=== PATIENT | male | born 1990 | race Caucasian/White ===

== ENCOUNTER 2019-10-13 09:21 | Day surgery (SDC) | payer BC ==
[2019-10-11 16:24] VITALS: BMI 28.2
[~2019-10-13 09:21] MED LIST: DEXAMETHASONE SOD PHOSPHATE 10 MG/ML 1 ML VIAL IV ONE; HEPARIN SODIUM,PORCINE 5,000 UNIT/ML 1 ML VIAL SQ ONE; HYDROmorphone 0.5 MG/0.5 ML SYRINGE IVP PRN; LACTATED RINGERS 1,000 ML IV SCH; LIDOCAINE 1% 20 ML VIAL (10MG/ML) FOR IV START INTRADERMA PRN; MIDAZOLAM 2 MG/2 ML VIAL IV PRN; ONDANSETRON 4 MG/2 ML VIAL IVP ONE; Pre Op ABX Message 1 EACH MISC MISCELLANE ONE; SCOPOLAMINE 1.5MG/72HR PATCH TRANSDERM ONE
[2019-10-13 09:51] VITALS: RESP 18; TEMP 97.5
--- NOTE | 2019-10-13 09:54 | P.GSHP ---
History of Present Illness H&P Date: 10/13/19 Chief Complaint: Left arm lipoma 2 This is a 28-year-old male who presents today for excision of left arm lipoma. Patient has a for similar lipoma near his left bicep and a 2 cm lipoma on the forearm. Past Medical History Past Medical History: Hypertension Additional Past Medical History / Comment(s): STATES NEW DIAGNOSIS OF HTN- NO MEDS- STATES HE IS TRYING DIET AND EXERCISE ., HX GOUT, ASTHMA (CHILD), LIPOMAS LEFT ARM. , SCHEDULING SLEEP APNEA TESTING, BACK & KNEE PAIN. History of Any Multi-Drug Resistant Organisms: None Reported Past Surgical History: No Surgical Hx Reported Past Anesthesia/Blood Transfusion Reactions: Motion Sickness Additional Past Anesthesia/Blood Transfusion Reaction / Comment(s): NO ANESTHESIA HX. Past Psychological History: No Psychological Hx Reported Smoking Status: Former smoker Past Alcohol Use History: Occasional Additional Past Alcohol Use History / Comment(s): QUIT SMOKING 2013. SMOKED LESS THAN 1/2 PPD. SMOKED 7 YEARS. Past Drug Use History: Marijuana Additional Drug Use History / Comment(s): CURRENT MARIJUANA USE. - Past Family History Mother Family Medical History: No Reported History Medications and Allergies Home Medications Medication Instructions Recorded Confirmed Type Ascorbic Acid [Vitamin C] 500 mg PO DAILY 10/11/19 10/13/19 History Allergies Allergy/AdvReac Type Severity Reaction Status Date / Time No Known Allergies Allergy Verified 10/13/19 09:45 Surgical - Exam Vital Signs Temp Pulse Resp BP Pulse Ox 97.5 F L 68 18 136/85 99 10/13/19 09:50 10/13/19 09:50 10/13/19 09:50 10/13/19 09:50 10/13/19 09:50 - General well developed, well nourished, no distress - Eyes PERRL - ENT normal pinna - Neck no masses - Respiratory normal expansion - Cardiovascular Rhythm: regular - Abdomen Abdomen: soft, non tender - Integumentary Or similar lipoma left upper arm on the medial aspect of bicep, 3 cm lipoma left forearm Assessment and Plan Assessment: Left arm lipoma 2. We'll perform excision.
[2019-10-13] MEDS ORDERED: PROPOFOL 10 MG/ML 20 ML VIAL IV ONE (10:14)
[2019-10-13] MEDS ORDERED: fentaNYL (PF) 50 MCG/ML 2 ML AMP ONE (10:14)
[2019-10-13] MEDS ORDERED: MIDAZOLAM 2 MG/2 ML VIAL ONE (10:14)
[2019-10-13] MEDS ORDERED: KETAMINE 10 MG/ML 20 ML VIAL ONE (10:14)
[2019-10-13] MEDS ORDERED: LIDOCAINE 1%-EPI 1:100,000 20 ML VIAL SQ ONE ×2 (10:36)
[2019-10-13 11:37] VITALS: BP 130/84; PULSE 71
--- NOTE | 2019-10-13 13:02 | P.OP ---
Date of Procedure: 10/13/19 Preoperative Diagnosis: Left arm lipomas 2 Postoperative Diagnosis: Left arm lipoma 2 Procedure(s) Performed: Excision of left arm lipoma 2 Anesthesia: MAC Surgeon: Vic Saab Estimated Blood Loss (ml): 5 Pathology: other (And lipomas) Condition: stable Disposition: PACU Description of Procedure: Patient's placed on the operative table in the supine position. He received IV sedation. His left arm was prepped and draped usual sterile fashion. The patient had a for similar lipoma located in the medial aspect of his left bicep. The skin was anesthetized 1% local Xylocaine. Then the skin was incised using a 15 blade and then using blunt and sharp dissection with cautery the lipoma was excised. The skin was closed interrupted 3-0 Monocryl suture. Dermabond was applied. Next the left forearm lipoma was anesthetized 1% local Xylocaine. Skin was incised and then using blunt and sharp dissection with cautery the lipoma was removed. The lipoma measured approximately 2 cm in diameter. This was sent to pathology. The skin was closed interrupted 3-0 Monocryl suture. Dermabond was applied. Patient top she will well and was sent to recovery room in stable condition.
--- NOTE | 2019-10-18 14:28 | CDI ---
Date: 10.18.19 CDS/Software Quality Test Engineer Name: Sujata Patel Phone: If any questions, call Carley Mcbride Manager Search Engine at [phone] Patient Name: Zia Gomez Adm Date: 10.13.19 Dis Date: 10.13.19 Attention: The [facility] coding staff appreciate your assistance in clarifying documentation. Please respond to the clarification below the line at the bottom and electronically sign. The [facility] Coding Staff will review the response and follow up if needed. Please note: Queries are made part of the legal health record. If you have any questions, please contact the Manager Search Engine. Dear Dr. Saab Please document the size of the lipoma you removed from the patients left bicep. Thank you for your kind consideration. 4 cm MTDD
== END 2019-10-13 12:03 | disposition home or self-care (01) ==
LOC: OR 09:21
PROVIDERS: ATTEND Surgery
DX: D17.22 Benign lipomatous neoplasm of skin and subcutaneous tissue of left arm (principal); I10 Essential (primary) hypertension; M10.9 Gout, unspecified; J45.909 Unspecified asthma, uncomplicated; M54.9 Dorsalgia, unspecified; M25.569 Pain in unspecified knee; K08.89 Other specified disorders of teeth and supporting structures; Z87.898 Personal history of other specified conditions; Z87.891 Personal history of nicotine dependence; Z98.890 Other specified postprocedural states
CPT/HCPCS: 88304; 11404; 11402; J2250; J1644; J1100; J2405; J3010; J2704

== ENCOUNTER 2020-02-09 08:33 | Emergency (ER) | payer BC ==
[2020-02-09 08:40] VITALS: PULSE 76; RESP 16
[2020-02-09] MEDS ORDERED: PANTOPRAZOLE 40 MG/10 ML VIAL IVP STA (08:56)
[2020-02-09] MEDS ORDERED: SODIUM CHLORIDE 0.9% 1,000 ML IV STA ×2 (08:56)
--- NOTE | 2020-02-09 08:59 | ED ---
GI Bleed HPI - General Chief complaint: GI Bleed Stated complaint: patient states pooping blood Time Seen by Provider: 02/09/20 08:42 Source: patient, RN notes reviewed, old records reviewed Mode of arrival: ambulatory Limitations: no limitations - History of Present Illness Initial comments: Patient is a 29-year-old male who presents emergency department today with 1 day of bloody stool. Patient reports that he had soft stools which then progressed to bloody stools and lower abdominal cramping and pain this morning. Patient reports that he had some more bloody stools a work and decided to come home. He is here with his . He's had a history of bowel trouble and frequent diarrhea. also states he's had a unintentional 10 pound weight loss over the past month. Patient has had no history of colonoscopies before. He denies any vomiting or nausea. He states that he has no changes in urination. - Related Data Home Medications Medication Instructions Recorded Confirmed Ascorbic Acid [Vitamin C] 500 mg PO DAILY 10/11/19 10/13/19 Previous Rx's Medication Instructions Recorded Amoxic-Pot Clav 875-125Mg 1 tab PO Q12HR #20 tablet 02/09/20 [Augmentin 875-125] Allergies Allergy/AdvReac Type Severity Reaction Status Date / Time iodine Allergy Rash/Hives Verified 02/09/20 08:41 povidone-iodine Allergy Rash/Hives Verified 02/09/20 08:41 [From Betadine] soap [From Betadine] Allergy Rash/Hives Verified 02/09/20 08:41 Review of Systems ROS Statement: Those systems with pertinent positive or pertinent negative responses have been documented in the HPI. ROS Other: All systems not noted in ROS Statement are negative. Past Medical History Past Medical History: Hypertension Additional Past Medical History / Comment(s): STATES NEW DIAGNOSIS OF HTN- NO MEDS- STATES HE IS TRYING DIET AND EXERCISE ., HX GOUT, ASTHMA (CHILD), LIPOMAS LEFT ARM. , SCHEDULING SLEEP APNEA TESTING, BACK & KNEE PAIN. History of Any Multi-Drug Resistant Organisms: None Reported Past Surgical History: No Surgical Hx Reported Past Anesthesia/Blood Transfusion Reactions: Motion Sickness Additional Past Anesthesia/Blood Transfusion Reaction / Comment(s): NO ANESTHESIA HX. Past Psychological History: No Psychological Hx Reported Smoking Status: Former smoker Past Alcohol Use History: Occasional Past Drug Use History: Marijuana - Past Family History Mother Family Medical History: No Reported History General Exam - General Exam Comments Initial Comments: 29-year-old male. Alert and oriented. No distress. General: Well appearing, well nourished, in no distress. Oriented x 3, normal mood and affect . Ambulating without difficulty. Skin: Good turgor, no rash, unusual bruising or prominent lesions Hair: Normal texture and distribution. HEENT: Head: Normocephalic, atraumatic, no visible or palpable masses, depressions, or scaring. Eyes: Visual acuity intact, conjunctiva clear, sclera non-icteric, EOM intact, PERRL. Ears: EACs clear, TMs translucent & cone of light visualized. hearing intact. Nose: No external lesions, mucosa non-inflamed, septum and turbinates normal Mouth: Mucous membranes moist, no mucosal lesions. Teeth/Gums: No obvious caries or periodontal disease. No gingival inflammation or significant resorption. Pharynx: Mucosa non-inflamed, no tonsillar hypertrophy or exudate Neck: Supple, without lesions, bruits, or adenopathy, thyroid non-enlarged and non-tender Heart: No cardiomegaly or thrills; regular rate and rhythm, no murmur or gallop Lungs: Clear to auscultation and percussion Abdomen: Bowel sounds normal, left lower quadrant tenderness. Back: Spine normal without deformity or tenderness, no CVA tenderness Rectal: Normal sphincter tone, no hemorrhoids or masses palpable. No significant amount of blood noted. No significant tenderness. Extremities: No amputations or deformities, cyanosis, edema or varicosities, peripheral pulses intact Musculoskeletal: Normal gait and station. No misalignment, asymmetry, crepitat ion, defects, tenderness, masses, effusions, decreased range of motion, instability, atrophy or abnormal strength or tone in the head, neck, spine, ribs, pelvis or extremities. Neurologic: CN 2-12 normal. Sensation to pain, touch, and proprioception normal. DTRs normal in upper and lower extremities. No pathologic reflexes. Psychiatric: Oriented X3, intact recent and remote memory, judgment and insight, normal mood and affect. Limitations: no limitations Course Vital Signs 02/09/20 08:36 Temperature 97.9 F Pulse Rate 76 Respiratory 16 Rate Blood Pressure 137/85 O2 Sat by Pulse 100 Oximetry Medical Decision Making - Medical Decision Making Patient is a 29-year-old male who presents is emergency department today with 1 day of bloody stool. Patient has some minimal left-sided lower abdominal pain. No acute tenderness. This time patient's labwork was reviewed. Hemoglobin is stable 15. White blood cell count is 8. Patient reports he has had intermittent diarrhea off and on for the past few years. I discussed Patient may have autoimmune process like Crohn's or colitis. Patient does have a positive occult stool. I discussed case with Dr. West. With labs a single vial signs stable discussed treatment this time for possible infectious colitis in the interim having a clear liquid diet. He discussed the importance with the Patient following up with GI specialist and that he may need to have a colonoscopy. Discussed strict return parameters of fever or vomiting or severe pain to return for reevaluation. Patient is agreeable to treatment plan will comply. - Lab Data Result diagrams: 02/09/20 09:00 02/09/20 09:00 Lab Results 02/09/20 02/09/20 02/09/20 Range/Units 08:50 08:58 09:00 WBC 8.4 (3.8-10.6) k/uL RBC 5.31 (4.30-5.90) m/uL Hgb 15.3 (13.0-17.5) gm/dL Hct 44.9 (39.0-53.0) % MCV 84.5 (80.0-100.0) fL MCH 28.8 (25.0-35.0) pg MCHC 34.1 (31.0-37.0) g/dL RDW 12.2 (11.5-15.5) % Plt Count 247 (150-450) k/uL Neutrophils % 60 % Lymphocytes % 31 % Monocytes % 5 % Eosinophils % 2 % Basophils % 1 % Neutrophils # 5.0 (1.3-7.7) k/uL Lymphocytes # 2.6 (1.0-4.8) k/uL Monocytes # 0.5 (0-1.0) k/uL Eosinophils # 0.1 (0-0.7) k/uL Basophils # 0.1 (0-0.2) k/uL PT (9.0-12.0) sec INR (<1.2) APTT (22.0-30.0) sec Sodium (137-145) mmol/L Potassium (3.5-5.1) mmol/L Chloride (98-107) mmol/L Carbon Dioxide (22-30) mmol/L Anion Gap mmol/L BUN (9-20) mg/dL Creatinine (0.66-1.25) mg/dL Est GFR (CKD-EPI)AfAm (>60 ml/min/1.73 sqM) Est GFR (CKD-EPI)NonAf (>60 ml/min/1.73 sqM) Glucose (74-99) mg/dL Calcium (8.4-10.2) mg/dL Total Bilirubin (0.2-1.3) mg/dL AST (17-59) U/L ALT (4-49) U/L Alkaline Phosphatase (38-126) U/L Troponin I (0.000-0.034) ng/mL Total Protein (6.3-8.2) g/dL Albumin (3.5-5.0) g/dL Stool Occult Blood Positive (Negative) Blood Type Blood Type Confirm O Positive Blood Type Recheck Bld Type Recheck Status Antibody Screen Spec Expiration Date 02/09/20 02/09/20 02/09/20 Range/Units 09:00 09:00 09:00 WBC (3.8-10.6) k/uL RBC (4.30-5.90) m/uL Hgb (13.0-17.5) gm/dL Hct (39.0-53.0) % MCV (80.0-100.0) fL MCH (25.0-35.0) pg MCHC (31.0-37.0) g/dL RDW (11.5-15.5) % Plt Count (150-450) k/uL Neutrophils % % Lymphocytes % % Monocytes % % Eosinophils % % Basophils % % Neutrophils # (1.3-7.7) k/uL Lymphocytes # (1.0-4.8) k/uL Monocytes # (0-1.0) k/uL Eosinophils # (0-0.7) k/uL Basophils # (0-0.2) k/uL PT 10.4 (9.0-12.0) sec INR 1.0 (<1.2) APTT 26.7 (22.0-30.0) sec Sodium 140 (137-145) mmol/L Potassium 4.6 (3.5-5.1) mmol/L Chloride 106 (98-107) mmol/L Carbon Dioxide 24 (22-30) mmol/L Anion Gap 10 mmol/L BUN 18 (9-20) mg/dL Creatinine 1.00 (0.66-1.25) mg/dL Est GFR (CKD-EPI)AfAm >90 (>60 ml/min/1.73 sqM) Est GFR (CKD-EPI)NonAf >90 (>60 ml/min/1.73 sqM) Glucose 102 H (74-99) mg/dL Calcium 9.6 (8.4-10.2) mg/dL Total Bilirubin 1.0 (0.2-1.3) mg/dL AST 30 (17-59) U/L ALT 38 (4-49) U/L Alkaline Phosphatase 80 (38-126) U/L Troponin I <0.012 (0.000-0.034) ng/mL Total Protein 7.6 (6.3-8.2) g/dL Albumin 4.7 (3.5-5.0) g/dL Stool Occult Blood (Negative) Blood Type Blood Type Confirm Blood Type Recheck Bld Type Recheck Status Antibody Screen Spec Expiration Date 02/09/20 Range/Units 09:00 WBC (3.8-10.6) k/uL RBC (4.30-5.90) m/uL Hgb (13.0-17.5) gm/dL Hct (39.0-53.0) % MCV (80.0-100.0) fL MCH (25.0-35.0) pg MCHC (31.0-37.0) g/dL RDW (11.5-15.5) % Plt Count (150-450) k/uL Neutrophils % % Lymphocytes % % Monocytes % % Eosinophils % % Basophils % % Neutrophils # (1.3-7.7) k/uL Lymphocytes # (1.0-4.8) k/uL Monocytes # (0-1.0) k/uL Eosinophils # (0-0.7) k/uL Basophils # (0-0.2) k/uL PT (9.0-12.0) sec INR (<1.2) APTT (22.0-30.0) sec Sodium (137-145) mmol/L Potassium (3.5-5.1) mmol/L Chloride (98-107) mmol/L Carbon Dioxide (22-30) mmol/L Anion Gap mmol/L BUN (9-20) mg/dL Creatinine (0.66-1.25) mg/dL Est GFR (CKD-EPI)AfAm (>60 ml/min/1.73 sqM) Est GFR (CKD-EPI)NonAf (>60 ml/min/1.73 sqM) Glucose (74-99) mg/dL Calcium (8.4-10.2) mg/dL Total Bilirubin (0.2-1.3) mg/dL AST (17-59) U/L ALT (4-49) U/L Alkaline Phosphatase (38-126) U/L Troponin I (0.000-0.034) ng/mL Total Protein (6.3-8.2) g/dL Albumin (3.5-5.0) g/dL Stool Occult Blood (Negative) Blood Type O Positive Blood Type Confirm Blood Type Recheck No Previous Record Bld Type Recheck Status CABO Indicated Antibody Screen NEGATIVE Spec Expiration Date 02/12/2020 - 2299 Disposition Clinical Impression: Bloody stool, Abdominal pain Disposition: HOME SELF-CARE Condition: Good Instructions (If sedation given, give patient instructions): Gastrointestinal B yolanda (ED) Additional Instructions: Patient should have a clear liquid diet for the next 24-48 hours. Then advance to a bland diet afterwards. Take the antibiotic as prescribed. Follow-up with PCP. Return to the ED if any alarming signs or symptoms occur. Prescriptions: Amoxic-Pot Clav 875-125Mg [Augmentin 875-125] 1 tab PO Q12HR #20 tablet Is patient prescribed a controlled substance at d/c from ED?: No Referrals: Efrain Corbett III, MD [Primary Care Provider] - 1-2 days Annie Akhtar MD [STAFF PHYSICIAN] - 1-2 days Time of Disposition: 10:24
[2020-02-09 09:07] VITALS: TEMP 97.9
[2020-02-09 09:24] LABS: Basophils # (A) 0.1 k/uL (0-0.2); Basophils % (A) 1 %; Eosinophils # (A) 0.1 k/uL (0-0.7); Eosinophils % (A) 2 %; HCT 44.9 % (39.0-53.0); HGB 15.3 gm/dL (13.0-17.5); Lymphocytes # (A) 2.6 k/uL (1.0-4.8); Lymphocytes % (A) 31 %; MCH 28.8 pg (25.0-35.0); MCHC 34.1 g/dL (31.0-37.0); MCV 84.5 fL (80.0-100.0); Monocytes # (A) 0.5 k/uL (0-1.0); Monocytes % (A) 5 %; Neutrophils % (A) 60 %; Platelet Count 247 k/uL (150-450); RBC 5.31 m/uL (4.30-5.90); RDW 12.2 % (11.5-15.5); WBC 8.4 k/uL (3.8-10.6)
[2020-02-09 09:35] LABS: Partial Thromboplastin Time 26.7 sec (22.0-30.0); Prothrombin Time 10.4 sec (9.0-12.0)
[2020-02-09 09:40] LABS: ALT 38 U/L (4-49); AST 30 U/L (17-59); African American GFR (CKD) >90 (>60 ml/min/1.73 sqM); Albumin 4.7 g/dL (3.5-5.0); Alkaline Phosphatase 80 U/L (38-126); Anion Gap 10 mmol/L; Blood Urea Nitrogen 18 mg/dL (9-20); Calcium 9.6 mg/dL (8.4-10.2); Carbon Dioxide 24 mmol/L (22-30); Chloride 106 mmol/L (98-107); Glucose 102 mg/dL (74-99); Non-African American GFR(CKD) >90 (>60 ml/min/1.73 sqM); Potassium 4.6 mmol/L (3.5-5.1); Sodium 140 mmol/L (137-145); Total Protein 7.6 g/dL (6.3-8.2)
[2020-02-09] MEDS ORDERED: KETOROLAC 30 MG/ML 1 ML VIAL IVP STA (09:59)
[2020-02-09 10:41] VITALS: BP 130/75
== END 2020-02-09 10:39 | disposition home or self-care (01) ==
LOC: EC 08:33
DX: K92.1 Melena (principal); R10.30 Lower abdominal pain, unspecified; R19.7 Diarrhea, unspecified; I10 Essential (primary) hypertension; M10.9 Gout, unspecified; Z88.3 Allergy status to other anti-infective agents; Z87.891 Personal history of nicotine dependence; Z91.048 Other nonmedicinal substance allergy status
CPT/HCPCS: 36415; 86900; 86901; 80053; 84484; 85025; 85610; 85730; 86850; 82272; 99285; 96374; 96375; 96361; J1885; C9113

== ENCOUNTER → 2021-12-22 | Outpatient (CLI) | payer BC ==
--- NOTE | 2021-12-22 08:27 | MR ---
EXAMINATION TYPE: MR knee RT wo con DATE OF EXAM: 12/22/2021 COMPARISON: None HISTORY: PAIN IN RT KNEE TECHNIQUE: Multiplanar, multisequence imaging of the right knee is performed without IV contrast. FINDINGS: There is some motion artifact on the exam. MEDIAL MENISCUS: Anterior and posterior horns are intact without tear, some mild increased signal pre sent within the posterior horn of the medial meniscus noted. LATERAL MENISCUS: Anterior and posterior horns are intact without tear. CRUCIATE LIGAMENTS: The anterior and posterior cruciate ligaments are intact and there is some increa sed signal present along the anterior cruciate ligament, some fluid signal is present, there may be a partial tear or strain. COLLATERAL LIGAMENTS: The medial collateral ligament and lateral collateral ligament complex are inta ct and unremarkable. EXTENSOR MECHANISM: Visualized quadriceps and patellar tendons are intact. EFFUSION: Minimal effusion present posterior to the patella POPLITEAL CYST: Minimal semimembranosus gastrocnemius cyst is present measuring only 2.2 x 0.9 x 0.4 cm TRICOMPARTMENT SPACES: Maintained CARTILAGE: Normal BONE MARROW SIGNAL: Normal OTHER: No additional significant abnormality is appreciated. IMPRESSION: Minimal joint effusion. Small Renteria's cyst. Possible partial tear or strain anterior cruciate ligamen t
== END | disposition home or self-care (01) ==
LOC: RADMRIMAIN 07:17
PROVIDERS: ATTEND Nurse Practitioner Family
DX: Z00.00 Encounter for general adult medical examination without abnormal findings (principal); M25.461 Effusion, right knee; M71.21 Synovial cyst of popliteal space [Baker], right knee

== ENCOUNTER 2022-01-30 20:43 | Emergency (ER) | payer BC ==
[2022-01-30 21:22] LABS: Basophils # (A) 0.1 k/uL (0-0.2); Basophils % (A) 1 %; Eosinophils # (A) 0.2 k/uL (0-0.7); Eosinophils % (A) 2 %; HCT 46.5 % (39.0-53.0); HGB 16.5 gm/dL (13.0-17.5); Lymphocytes # (A) 3.6 k/uL (1.0-4.8); Lymphocytes % (A) 32 %; MCH 30.5 pg (25.0-35.0); MCHC 35.5 g/dL (31.0-37.0); MCV 85.9 fL (80.0-100.0); Mean Platelet Volume 8.1; Monocytes # (A) 0.5 k/uL (0-1.0); Monocytes % (A) 5 %; Neutrophils # (A) 6.7 k/uL (1.3-7.7); Neutrophils % (A) 59 %; Platelet Count 268 k/uL (150-450); RBC 5.42 m/uL (4.30-5.90); RDW 13.4 % (11.5-15.5); WBC 11.3 k/uL (3.8-10.6)
[2022-01-30 21:32] LABS: ALT 41 U/L (4-49); AST 36 U/L (17-59); African American GFR (CKD) >90 (>60 ml/min/1.73 sqM); Albumin 4.6 g/dL (3.5-5.0); Alkaline Phosphatase 101 U/L (38-126); Anion Gap 11 mmol/L; Blood Urea Nitrogen 15 mg/dL (9-20); Carbon Dioxide 23 mmol/L (22-30); Chloride 104 mmol/L (98-107); Glucose 115 mg/dL (74-99); Non-African American GFR(CKD) >90 (>60 ml/min/1.73 sqM); Sodium 138 mmol/L (137-145); Total Bilirubin 0.6 mg/dL (0.2-1.3); Total Protein 8.1 g/dL (6.3-8.2)
--- NOTE | 2022-01-30 21:41 | XR ---
EXAMINATION TYPE: XR chest 2V DATE OF EXAM: 01/30/2022 COMPARISON: NONE HISTORY: Chest pain TECHNIQUE: 2 view FINDINGS: Heart and mediastinum are normal. Lungs are clear. Diaphragm is normal. Bony thorax is inta ct. IMPRESSION: Normal chest.
[2022-01-30 22:10] LABS: INR 0.9 (<1.2); Partial Thromboplastin Time 28.6 sec (22.0-30.0); Prothrombin Time 10.4 sec (9.0-12.0)
[2022-01-30 22:13] VITALS: RESP 18; TEMP 98.7
--- NOTE | 2022-01-30 23:38 | ED ---
General Adult HPI - General Chief complaint: Chest Pain Stated complaint: Chest Pain, Lt Shoulder Pain Time Seen by Provider: 01/30/22 22:16 Source: patient, RN notes reviewed Mode of arrival: ambulatory Limitations: no limitations - History of Present Illness Initial comments: 31-year-old male presents to the emergency Department with complaints of left shoulder pain, left chest discomfort, and elevated heart rate. Patient states he had an episode 2 days ago in which he experienced an elevated heart rate and left chest and shoulder pain. Patient states his discomfort resolved shortly; no aggravating or alleviating factors. States he had an another episode again today in which his left trapezius tightened up and became painful, followed by l eft chest discomfort; he took an aspirin with relief. Patient reports a resting heart rate around 100 according to his Apple watch. He does take Lisinopril for hypertension. States he did drink a Mountain Dew at breakfast and does not usually consume caffeine. Denies any nicotine or stimulant drug use. No headache, fever, diaphoresis, dizziness, shortness of breath, difficulty breathing, abdominal pain, nausea, vomiting, diarrhea, or dysuria. - Related Data Home Medications Medication Instructions Recorded Confirmed Lisinopril [Zestril] 10 mg PO DAILY 01/30/22 01/30/22 Allergies Allergy/AdvReac Type Severity Reaction Status Date / Time iodine Allergy Rash/Hives Verified 01/30/22 22:57 povidone-iodine Allergy Rash/Hives Verified 01/30/22 22:57 [From Betadine] soap [From Betadine] Allergy Rash/Hives Verified 01/30/22 22:57 Review of Systems ROS Statement: Those systems with pertinent positive or pertinent negative responses have been documented in the HPI. ROS Other: All systems not noted in ROS Statement are negative. Past Medical History Past Medical History: Hypertension Additional Past Medical History / Comment(s): STATES NEW DIAGNOSIS OF HTN- NO MEDS- STATES HE IS TRYING DIET AND EXERCISE ., HX GOUT, ASTHMA (CHILD), LIPOMAS LEFT ARM. , SCHEDULING SLEEP APNEA TESTING, BACK & KNEE PAIN. History of Any Multi-Drug Resistant Organisms: None Reported Past Surgical History: No Surgical Hx Reported Past Anesthesia/Blood Transfusion Reactions: Motion Sickness Additional Past Anesthesia/Blood Transfusion Reaction / Comment(s): NO ANESTHESIA HX. Past Psychological History: No Psychological Hx Reported Smoking Status: Former smoker Past Alcohol Use History: Daily Past Drug Use History: Marijuana - Past Family History Mother Family Medical History: No Reported History General Exam Limitations: no limitations (Well-developed, well-nourished male in no acute distress. Initial temperature 98.3, pulse 100, respirations 20, blood pressure 132/88, pulse ox 100% on room air.) General appearance: alert, in no apparent distress Eye exam: Present: normal appearance, PERRL, EOMI. Absent: scleral icterus, conjunctival injection, periorbital swelling Respiratory exam: Present: normal lung sounds bilaterally. Absent: respiratory distress, wheezes, rales, rhonchi, stridor, chest wall tenderness Cardiovascular Exam: Present: regular rate, normal rhythm, normal heart sounds. Absent: systolic murmur, diastolic murmur, rubs, gallop, clicks GI/Abdominal exam: Present: soft, normal bowel sounds. Absent: distended, tenderness, guarding, rebound, rigid Left General: Present: normal inspection Shoulder Exam: Present: normal inspection, full ROM. Absent: tenderness, swelling Vascular: Present: normal capillary refill, radial pulse. Absent: vascular compromise, Pallo Neurological exam: Present: alert, oriented X3, CN II-XII intact Psychiatric exam: Present: normal affect, normal mood Skin exam: Present: warm, dry, intact, normal color. Absent: rash Course Vital Signs 01/30/22 01/30/22 20:51 22:08 Temperature 98.3 F 98.7 F Pulse Rate 100 96 Respiratory 20 18 Rate Blood Pressure 132/88 138/91 O2 Sat by Pulse 100 97 Oximetry Medical Decision Making - Medical Decision Making 31-year-old male with a past medical history of hypertension presents to the emergency department for evaluation of left-sided chest and shoulder pain. Upon exam, patient is well-appearing and in no acute distress. He is afebrile with stable vital signs. Patient's heart rate currently ranges from 84-100 bpm, which is normal for patient. Physical exam findings are unremarkable. Laboratory studies were reviewed and are within normal limits. EKG shows normal sinus rhythm with sinus arrhythmia. Chest x-ray shows normal chest. Patient is pain-free and resting comfortably. Discussed potential triggers for chest discomfort and elevated heart rate. Suggested limiting her intake of caffeine and alcohol as well as minimizing time spent in hot tub. Encouraged use of Motr in for shoulder pain. Instructed to follow up with PCP on Wednesday morning for recheck. Strict return parameters were reviewed with patient and significant other. Questions answered, they verbalize understanding and agree with this plan. - Lab Data Result diagrams: 01/30/22 21:08 01/30/22 21:08 Lab Results 01/30/22 01/30/22 01/30/22 Range/Units 21:08 21:08 21:08 WBC 11.3 H (3.8-10.6) k/uL RBC 5.42 (4.30-5.90) m/uL Hgb 16.5 (13.0-17.5) gm/dL Hct 46.5 (39.0-53.0) % MCV 85.9 (80.0-100.0) fL MCH 30.5 (25.0-35.0) pg MCHC 35.5 (31.0-37.0) g/dL RDW 13.4 (11.5-15.5) % Plt Count 268 (150-450) k/uL MPV 8.1 Neutrophils % 59 % Lymphocytes % 32 % Monocytes % 5 % Eosinophils % 2 % Basophils % 1 % Neutrophils # 6.7 (1.3-7.7) k/uL Lymphocytes # 3.6 (1.0-4.8) k/uL Monocytes # 0.5 (0-1.0) k/uL Eosinophils # 0.2 (0-0.7) k/uL Basophils # 0.1 (0-0.2) k/uL PT 10.4 (9.0-12.0) sec INR 0.9 (<1.2) APTT 28.6 (22.0-30.0) sec Sodium 138 (137-145) mmol/L Potassium 4.0 (3.5-5.1) mmol/L Chloride 104 (98-107) mmol/L Carbon Dioxide 23 (22-30) mmol/L Anion Gap 11 mmol/L BUN 15 (9-20) mg/dL Creatinine 1.01 (0.66-1.25) mg/dL Est GFR (CKD-EPI)AfAm >90 (>60 ml/min/1.73 sqM) Est GFR (CKD-EPI)NonAf >90 (>60 ml/min/1.73 sqM) Glucose 115 H (74-99) mg/dL Calcium 9.0 (8.4-10.2) mg/dL Magnesium 2.0 (1.6-2.3) mg/dL Total Bilirubin 0.6 (0.2-1.3) mg/dL AST 36 (17-59) U/L ALT 41 (4-49) U/L Alkaline Phosphatase 101 (38-126) U/L Troponin I (0.000-0.034) ng/mL Total Protein 8.1 (6.3-8.2) g/dL Albumin 4.6 (3.5-5.0) g/dL 01/30/22 Range/Units 21:08 WBC (3.8-10.6) k/uL RBC (4.30-5.90) m/uL Hgb (13.0-17.5) gm/dL Hct (39.0-53.0) % MCV (80.0-100.0) fL MCH (25.0-35.0) pg MCHC (31.0-37.0) g/dL RDW (11.5-15.5) % Plt Count (150-450) k/uL MPV Neutrophils % % Lymphocytes % % Monocytes % % Eosinophils % % Basophils % % Neutrophils # (1.3-7.7) k/uL Lymphocytes # (1.0-4.8) k/uL Monocytes # (0-1.0) k/uL Eosinophils # (0-0.7) k/uL Basophils # (0-0.2) k/uL PT (9.0-12.0) sec INR (<1.2) APTT (22.0-30.0) sec Sodium (137-145) mmol/L Potassium (3.5-5.1) mmol/L Chloride (98-107) mmol/L Carbon Dioxide (22-30) mmol/L Anion Gap mmol/L BUN (9-20) mg/dL Creatinine (0.66-1.25) mg/dL Est GFR (CKD-EPI)AfAm (>60 ml/min/1.73 sqM) Est GFR (CKD-EPI)NonAf (>60 ml/min/1.73 sqM) Glucose (74-99) mg/dL Calcium (8.4-10.2) mg/dL Magnesium (1.6-2.3) mg/dL Total Bilirubin (0.2-1.3) mg/dL AST (17-59) U/L ALT (4-49) U/L Alkaline Phosphatase (38-126) U/L Troponin I <0.012 (0.000-0.034) ng/mL Total Protein (6.3-8.2) g/dL Albumin (3.5-5.0) g/dL - EKG Data EKG shows normal: sinus rhythm Rate: normal EKG Comments: EKG obtained at 2058 shows sinus rhythm with sinus arrhythmia and borderline right axis deviation along with nonspecific T-wave abnormality. Ventricular rate 94, LA interval 154, QRS duration 87, QT/QTC 333/384. Interpretation borderline ECG. - Radiology Data Radiology results: report reviewed, image reviewed Two-view chest x-ray was obtained. Report was reviewed in its entirety. Impression per Dr. Shannon is normal chest. Disposition Clinical Impression: Non-cardiac chest pain, Shoulder pain, left Disposition: HOME SELF-CARE Condition: Stable Instructions (If sedation given, give patient instructions): Chest Pain (ED), Heart Palpitations (ED) Additional Instructions: Limit use of caffeine and alcohol. Minimize time spent in hot tub. May take Motrin if needed for shoulder pain. Follow-up with your PCP on Wednesday morning for recheck. Return to the emergency department with any shortness of breath, difficulty breathing, crushing chest pain, or other concerning symptoms. Is patient prescribed a controlled substance at d/c from ED?: No Referrals: Efrain Corbett III, MD [Primary Care Provider] - 1-2 days Time of Disposition: 23:38
[2022-01-31 05:48] VITALS: BP 132/78; PULSE 74
== END 2022-01-31 00:28 | disposition home or self-care (01) ==
LOC: EC 20:43
DX: R07.89 Other chest pain (principal); I10 Essential (primary) hypertension; M25.512 Pain in left shoulder; Z87.891 Personal history of nicotine dependence; Z91.041 Radiographic dye allergy status; Z91.048 Other nonmedicinal substance allergy status
CPT/HCPCS: 36415; 71046; 80053; 83735; 84484; 85025; 85610; 85730; 93005

== ENCOUNTER 2023-06-27 12:02 | Emergency (ER) | payer BC ==
[2023-06-27] MEDS ORDERED: SODIUM CHLORIDE 0.9% 500 ML 500 ML IV STA (12:55)
[2023-06-27] MEDS ORDERED: ONDANSETRON 4 MG/2 ML VIAL IVP STA (12:55)
[2023-06-27] MEDS ORDERED: SODIUM CHLORIDE 0.9% 1,000 ML IV STA (12:55)
[2023-06-27] MEDS ORDERED: HYDROmorphone 0.5 MG/0.5 ML SYRINGE IVP STA (12:55)
--- NOTE | 2023-06-27 13:36 | CT ---
EXAMINATION TYPE: CT abdomen pelvis wo con CT DLP: 938.4 mGycm, Automated exposure control for dose reduction was used. DATE OF EXAM: 06/27/2023 1:27 PM COMPARISON: None. CLINICAL INDICATION:Male, 32 years old with history of abdominal pain; left flank pain TECHNIQUE: Axial CT of the abdomen and pelvis. Sagittal and coronal reformats were created on a [employer] workstation. Contrast used: mL of , (none if empty) Oral contrast used: without Oral Contrast (none if empty) FINDINGS: LOWER CHEST: Unremarkable ABDOMEN LIVER: Unremarkable GALLBLADDER AND BILE DUCTS: Unremarkable. PANCREAS: Unremarkable. SPLEEN: Unremarkable. ADRENAL GLANDS: Unremarkable. KIDNEYS AND URETERS: No evidence of hydronephrosis or renal calculus. The ureters are unremarkable. PELVIS BLADDER: Unremarkable REPRODUCTIVE: Unremarkable. ABDOMEN & PELVIS STOMACH AND BOWEL: No evidence of bowel obstruction. Circumferential wall thickening of the sigmoid c olon. Mild inflammation changes. The appendix is normal. PERITONEUM/RETROPERITONEUM: No evidence of pneumoperitoneum or free fluid. VASCULATURE: No evidence of aortic aneurysm. MUSCULOSKELETAL: No acute osseous abnormalities LYMPH NODES: No gross evidence for lymphadenopathy. SOFT TISSUE/ABDOMINAL WALL: Fat-containing umbilical hernia. Fat-containing left inguinal hernia. IMPRESSION: Mild sigmoid colitis. No evidence for obstructive uropathy or calculus.
[2023-06-27 13:42] LABS: Basophils # (A) 0.1 k/uL (0-0.2); Basophils % (A) 1 %; Eosinophils # (A) 0.1 k/uL (0-0.7); Eosinophils % (A) 1 %; HCT 46.4 % (39.0-53.0); HGB 16.1 gm/dL (13.0-17.5); Lymphocytes # (A) 2.3 k/uL (1.0-4.8); Lymphocytes % (A) 21 %; MCH 29.2 pg (25.0-35.0); MCHC 34.8 g/dL (31.0-37.0); Mean Platelet Volume 8.6; Monocytes # (A) 0.7 k/uL (0-1.0); Monocytes % (A) 6 %; Neutrophils # (A) 7.5 k/uL (1.3-7.7); Neutrophils % (A) 70 %; Platelet Count 247 k/uL (150-450); RBC 5.52 m/uL (4.30-5.90); RDW 12.8 % (11.5-15.5); WBC 10.6 k/uL (3.8-10.6)
[2023-06-27 13:48] LABS: ALT 39 U/L (4-49); AST 34 U/L (17-59); African American GFR (CKD) >90 (>60 ml/min/1.73 sqM); Albumin 4.6 g/dL (3.5-5.0); Alkaline Phosphatase 92 U/L (38-126); Anion Gap 12 mmol/L; Blood Urea Nitrogen 16 mg/dL (9-20); Calcium 9.5 mg/dL (8.4-10.2); Carbon Dioxide 23 mmol/L (22-30); Chloride 104 mmol/L (98-107); Glucose 107 mg/dL (74-99); Lipase 595 U/L (23-300); Non-African American GFR(CKD) >90 (>60 ml/min/1.73 sqM); Potassium 4.1 mmol/L (3.5-5.1); Sodium 139 mmol/L (137-145); Total Bilirubin 0.7 mg/dL (0.2-1.3)
--- NOTE | 2023-06-27 14:57 | ED ---
Abdominal Pain HPI - General Chief Complaint: Abdominal Pain Stated Complaint: Abd Pain Time Seen by Provider: 06/27/23 12:32 Source: patient, RN notes reviewed Mode of arrival: ambulatory Limitations: no limitations - History of Present Illness Initial Comments: 32-year-old male presents emergency department tingling of abdominal pain. Patient states started a few days ago states is very intense when it first started states that he took his significant others stomach metal which helped states the pain is worsened he states he did have a bowel movement with some noted blood. Patient denies any fever or chills slight nausea no vomiting states he has a large family history of colon issues including diverticulitis. - Related Data Home Medications Medication Instructions Recorded Confirmed lisinopriL [Zestril] 10 mg PO DAILY 01/30/22 01/30/22 Allergies Allergy/AdvReac Type Severity Reaction Status Date / Time iodine Allergy Rash/Hives Verified 06/27/23 12:21 povidone-iodine Allergy Rash/Hives Verified 06/27/23 12:21 [From Betadine] soap [From Betadine] Allergy Rash/Hives Verified 06/27/23 12:21 Review of Systems ROS Statement: Those systems with pertinent positive or pertinent negative responses have been documented in the HPI. ROS Other: All systems not noted in ROS Statement are negative. Past Medical History Past Medical History: Hypertension Additional Past Medical History / Comment(s): STATES NEW DIAGNOSIS OF HTN- NO MEDS- STATES HE IS TRYING DIET AND EXERCISE ., HX GOUT, ASTHMA (CHILD), LIPOMAS LEFT ARM. , SCHEDULING SLEEP APNEA TESTING, BACK & KNEE PAIN. History of Any Multi-Drug Resistant Organisms: None Reported Past Surgical History: No Surgical Hx Reported Past Anesthesia/Blood Transfusion Reactions: Motion Sickness Additional Past Anesthesia/Blood Transfusion Reaction / Comment(s): NO ANESTHESIA HX. Past Psychological History: No Psychological Hx Reported Smoking Status: Former smoker Past Alcohol Use History: Daily Past Drug Use History: Marijuana - Past Family History Mother Family Medical History: No Reported History General Exam Limitations: no limitations General appearance: alert, in no apparent distress Head exam: Present: atraumatic, normocephalic, normal inspection Eye exam: Present: normal appearance, PERRL, EOMI. Absent: scleral icterus, conjunctival injection, periorbital swelling Neck exam: Present: normal inspection. Absent: tenderness, meningismus, lymphadenopathy Respiratory exam: Present: normal lung sounds bilaterally. Absent: respiratory distress, wheezes, rales, rhonchi, stridor Cardiovascular Exam: Present: regular rate, normal rhythm, normal heart sounds. Absent: systolic murmur, diastolic murmur, rubs, gallop, clicks GI/Abdominal exam: Present: soft, tenderness, normal bowel sounds. Absent: distended, guarding, rebound, rigid Course Vital Signs 06/27/23 12:17 Temperature 97.8 F Pulse Rate 81 Respiratory 20 Rate Blood Pressure 148/89 O2 Sat by Pulse 100 Oximetry Medical Decision Making - Medical Decision Making Was pt. sent in by a medical professional or institution (, PA, SECURITY DEVELOPER, urgent care, hospital, or care home...) When possible be specific @ -No Did you speak to anyone other than the patient for history (EMS, parent, family, police, friend...)? What history was obtained from this source @ -No Did you review nursing and triage notes (agree or disagree)? Why? @ -I reviewed and agree with nursing and triage notes Were old charts reviewed (outside hosp., previous admission, EMS record, old EKG, old radiological studies, urgent care reports/EKG's, care home records)? Report findings @ -No old charts were reviewed Differential Diagnosis (chest pain, altered mental status, abdominal pain women, abdominal pain men, vaginal bleeding, weakness, fever, dyspnea, syncope, headache, dizziness, GI bleed, back pain, seizure, CVA, palpatations, mental health, musculoskeletal)? @ -nDifferential Abdominal Pain Men: Appendicitis, cholecystitis, diverticulosis, ischemic bowel, pancreatitis, hepatitis, UTI, gastroenteritis, AAA, incarcerated hernia, bowel obstruction, constipation, inflammatory bowel, hepatitis, peptic ulcer disease, splenic infarction, perforated viscus, testicular torsion, this is not meant to be an all-inclusive listable EKG interpreted by me (3pts min.). @ -None X-rays interpreted by me (1pt min.). @ -None done CT interpreted by me (1pt min.). @ -CT abdomen pelvis shows evidence of colitis U/S interpreted by me (1pt. min.). @ -None done What testing was considered but not performed or refused? (CT, X-rays, U/S, labs)? Why? @ -None What meds were considered but not given or refused? Why? @ -None Did you discuss the management of the patient with other professionals (serafin fajardo i.e. , PA, SECURITY DEVELOPER, lab, RT, psych nurse, social media developer, criminal defense lawyer, teacher, staff combat information center officer, caseworker protective services)? Give summary @ -No Was smoking cessation discussed for >3mins.? @ -No Was critical care preformed (if so, how long)? @ -No Were there social determinants of health that impacted care today? How? (Homelessness, low income, unemployed, alcoholism, drug addiction, transportati on, low edu. Level, literacy, decrease access to med. care, alf, rehab)? @ -No Was there de-escalation of care discussed even if they declined (Discuss DNR or withdrawal of care, Hospice)? DNR status @ -No What co-morbidities impacted this encounter? (DM, HTN, Smoking, COPD, CAD, Cancer, CVA, ARF, Chemo, Hep., AIDS, mental health diagnosis, sleep apnea, morbid obesity)? @ -None Was patient admitted / discharged? Hospital course, mention meds given and route, prescriptions, significant lab abnormalities, going to OR and other pertinent info. @ -Discharge patient has mild colitis with no significant laboratory studies that were abnormal. Patient mildly elevated lipase but no CT changes of pancreatitis. Patient be discharged with supportive treatment and follow-up with GI. Undiagnosed new problem with uncertain prognosis? @ -No Drug Therapy requiring intensive monitoring for toxicity (Heparin, Nitro, Insulin, Cardizem)? @ -No Were any procedures done? @ -No Diagnosis/symptom? @ -Colitis Acute, or Chronic, or Acute on Chronic? @ -Acute Uncomplicated (without systemic symptoms) or Complicated (systemic symptoms)? @ -Uncomplicated Side effects of treatment? @ -No Exacerbation, Progression, or Severe Exacerbation? @ -No Poses a threat to life or bodily function? How? (Chest pain, [place], PR, pneumonia, PE, COPD, DKA, ARF, appy, cholecystitis, CVA, Diverticulitis, Homicidal, Suicidal, threat to staff... and all critical care pts) @ -No - Lab Data Result diagrams: 06/27/23 13:15 06/27/23 13:15 Lab Results 06/27/23 06/27/23 06/27/23 Range/Units 13:15 13:15 13:15 WBC 10.6 (3.8-10.6) k/uL RBC 5.52 (4.30-5.90) m/uL Hgb 16.1 (13.0-17.5) gm/dL Hct 46.4 (39.0-53.0) % MCV 84.0 (80.0-100.0) fL MCH 29.2 (25.0-35.0) pg MCHC 34.8 (31.0-37.0) g/dL RDW 12.8 (11.5-15.5) % Plt Count 247 (150-450) k/uL MPV 8.6 Neutrophils % 70 % Lymphocytes % 21 % Monocytes % 6 % Eosinophils % 1 % Basophils % 1 % Neutrophils # 7.5 (1.3-7.7) k/uL Lymphocytes # 2.3 (1.0-4.8) k/uL Monocytes # 0.7 (0-1.0) k/uL Eosinophils # 0.1 (0-0.7) k/uL Basophils # 0.1 (0-0.2) k/uL Sodium 139 (137-145) mmol/L Potassium 4.1 (3.5-5.1) mmol/L Chloride 104 (98-107) mmol/L Carbon Dioxide 23 (22-30) mmol/L Anion Gap 12 mmol/L BUN 16 (9-20) mg/dL Creatinine 1.03 (0.66-1.25) mg/dL Est GFR (CKD-EPI)AfAm >90 (>60 ml/min/1.73 sqM) Est GFR (CKD-EPI)NonAf >90 (>60 ml/min/1.73 sqM) Glucose 107 H (74-99) mg/dL Plasma Lactic Acid Fili 2.0 (0.7-2.0) mmol/L Calcium 9.5 (8.4-10.2) mg/dL Total Bilirubin 0.7 (0.2-1.3) mg/dL AST 34 (17-59) U/L ALT 39 (4-49) U/L Alkaline Phosphatase 92 (38-126) U/L Total Protein 8.0 (6.3-8.2) g/dL Albumin 4.6 (3.5-5.0) g/dL Lipase 595 H (23-300) U/L Disposition Clinical Impression: Colitis Disposition: HOME SELF-CARE Condition: Stable Instructions (If sedation given, give patient instructions): Colitis (ED) Additional Instructions: Please return to the Emergency Department if symptoms worsen or any other concer ns. Is patient prescribed a controlled substance at d/c from ED?: No Referrals: Efrain Corbett III, MD [Primary Care Provider] - 1-2 days Annie Akthar MD [STAFF PHYSICIAN] - 1-2 days Time of Disposition: 14:56
[2023-06-27 15:22] VITALS: BP 134/66; PULSE 77; RESP 18; TEMP 98.6
[2023-06-27] MEDS ORDERED: ACET/COD 300 MG/30 MG STARTER PACK 6 TAB BTL PO STA (15:25)
== END 2023-06-27 15:39 | disposition home or self-care (01) ==
LOC: EC 12:02
DX: K52.9 Noninfective gastroenteritis and colitis, unspecified (principal); I10 Essential (primary) hypertension; Z87.891 Personal history of nicotine dependence; F12.90 Cannabis use, unspecified, uncomplicated; Z88.8 Allergy status to other drugs, medicaments and biological substances; Z91.048 Other nonmedicinal substance allergy status; Z79.899 Other long term (current) drug therapy
CPT/HCPCS: 36415; 80053; 83605; 83690; 85025; 74176; 99284; 96374; 96375; 96361; J2405; J1170